=== PATIENT | female | born 1935 | race Caucasian/White ===

== ENCOUNTER 2018-07-06 00:46 | Emergency (ER) | payer MEDICARE, OTHER ==
[~2018-07-06] VITALS: Ht 167.6 cm; Wt 73.0 kg
[~2018-07-06 00:46] MED LIST: ARICEPT5 MG PO; ASPIR 8181 MG PO; BISCOLAX10 MG RC; FLUTICASONE PRO16 GM; HYDROCORTISONE30 GM TOP; LACTULOSE20 GM/30 M PO; LISINOPRIL10 MG PO; LORAZEPAM0.5 MG PO; MULTI-VITAMIN1 EACH PO; POLYETHYLENE GL17 GM PO; PRILOSEC10 MG PO; TYLENOL WITH C1 EACH PO; ZINC SULFATE220 M1 PO
--- NOTE | 2018-07-06 00:59 | NUR ---
[facility] CALLED FOR TRANSPORT
--- NOTE | 2018-07-06 01:50 | NUR ---
report called to [facility]. received call from [facility], informed that discharged back to skilled nursing.
== END 2018-07-06 01:49 | disposition home or self-care (01) ==
LOC: ER 00:46
DX: B86 Scabies (principal); T37.4X5A Adverse effect of anthelminthics, initial encounter; F03.90 Unspecified dementia, unspecified severity, without behavioral disturbance, psychotic disturbance, mood disturbance, and anxiety; I10 Essential (primary) hypertension; F32.9 Major depressive disorder, single episode, unspecified; K21.9 Gastro-esophageal reflux disease without esophagitis; E78.5 Hyperlipidemia, unspecified
CPT/HCPCS: 99282

== ENCOUNTER 2018-10-20 10:16 | Emergency (ER) | payer MEDICARE, OTHER ==
[~2018-10-20] VITALS: Ht 167.6 cm; Wt 73.0 kg
--- NOTE | 2018-10-20 11:30 | Diagnostic Imaging Report ---
History: Fall, bruising left forehead Comparison studies:None Technique: Axial images were obtained from the brain and cervical spine. Coronal and sagittal images reconstructed from the axial data. Intravenous contrast: None Dose modulation, iterative reconstruction, and/or weight based adjustment of the mA/kV was utilized to reduce the radiation dose to as low as reasonably achievable. Findings: Head CT: Scalp/skull: Large left frontal scalp hematoma. No fractures, blastic or lytic lesions. Brain sulci: Mildly prominent. Ventricles: Mild compensatory dilatation. No hydrocephalus. Parenchyma: Scattered small hypodensities in the supratentorial white matter are small vessel ischemic changes. No masses, hemorrhage, acute or chronic cortical vascular insults. Sellar/suprasellar region: No abnormalities. Craniocervical junction: Patent foramen magnum. No Chiari one malformation. Incidental findings: Atherosclerotic calcifications in the carotid siphons and vertebral arteries . Cervical spine CT: Fractures: None. Soft tissues: No gross abnormalities. Atlantoaxial articulation: Degenerative changes without acute abnormality. Alignment: Straightening of the cervical lordosis. No scoliosis. Cervicomedullary junction: No abnormalities. Patent foramen magnum. Vertebrae: No infection or neoplasm. Degenerative changes: Decreased intervertebral space with endplate sclerotic changes at C5-6. Fused intervertebral space at C6-7. Uncinate process hypertrophy and facet hypertrophy results in moderate left foraminal narrowing C3-4, severe right foraminal narrowing at C4-5, moderate right and severe left foraminal narrowing at C5-6. Posterior disc osteophyte complex results in moderate canal stenosis at C5-6. Incidental findings: Atherosclerotic calcifications of the carotid bulbs. 1 cm calcified nodule in the left thyroid lobe. Metallic fragments at the right paraspinal soft tissues and right retropharyngeal space. Impression: Head CT: 1. No acute intracranial abnormality. 2. Large left frontal scalp hematoma without underlying fracture. 3. Mild chronic vascular ischemic changes and mild diffuse volume loss. Cervical spine CT: 1. No acute abnormalities. 2. Cannot exclude ligament, spinal cord and or vascular abnormalities on the basis of this examination. Signed by: DR Jose L Waite M.D. on 10/20/2018 11:27 AM
--- NOTE | 2018-10-20 11:40 | NUR ---
PATIENT ASSISTED TO BEDSIDE COMMODE AND BACK TO BED AT THIS TIME; PATIENT TOLERATED WELL.
--- NOTE | 2018-10-20 11:47 | NUR ---
[facility] NOTIFIED OF NEED FOR TRANSPORT TO [facility] AT THIS TIME
== END 2018-10-20 13:04 | disposition home or self-care (01) ==
LOC: ER 10:16
DX: S00.83XA Contusion of other part of head, initial encounter (principal); W06.XXXA Fall from bed, initial encounter; Y93.84 Activity, sleeping; Y92.003 Bedroom of unspecified non-institutional (private) residence as the place of occurrence of the external cause; I10 Essential (primary) hypertension; E78.5 Hyperlipidemia, unspecified; K21.9 Gastro-esophageal reflux disease without esophagitis; F32.9 Major depressive disorder, single episode, unspecified; F03.90 Unspecified dementia, unspecified severity, without behavioral disturbance, psychotic disturbance, mood disturbance, and anxiety
CPT/HCPCS: 70450; 72125; 99284

== ENCOUNTER 2019-06-27 16:48 | Observation (INO) | payer MEDICARE, OTHER ==
[~2019-06-27] VITALS: Ht 162.6 cm; Wt 57.6 kg
--- NOTE | 2019-06-27 17:13 | NUR ---
PATIENTS DAUGHTER ISIDRO #[phone]
[2019-06-27 17:28] LABS: BASOPHILS % 0.4 % (0.0-1.0); EOSINOPHILS # (AUTO) 0.2 (0.0-0.4); EOSINOPHILS % 2.2 % (0.0-6.0); HEMATOCRIT 31.9 % (34.2-44.1); HEMOGLOBIN 9.8 g/dL (12.0-16.0); LYMPHOCYTES # (AUTO) 1.7 (1.0-3.2); LYMPHOCYTES % 24.9 % (18.0-39.1); MEAN CORPUSCULAR HEMOGLOBIN 29.4 pg (28-32); MEAN CORPUSCULAR HGB CONC 30.7 g/dL (31-35); MEAN CORPUSCULAR VOLUME 95.8 fL (81-99); MONOCYTES # (AUTO) 0.8 (0.2-0.8); MONOCYTES % 11.6 % (4.4-11.3); NEUTROPHILS # (AUTO) 4.2 (2.1-6.9); NEUTROPHILS % 60.8 % (38.7-80.0); PLATELET COUNT 230 x10e3/uL (140-360); RED BLOOD COUNT 3.33 x10e6/uL (3.6-5.1); RED CELL DISTRIBUTION WIDTH 13.6 % (11.7-14.4)
[2019-06-27 17:41] LABS: INR 0.9; PROTHROMBIN TIME 12.7 seconds (11.9-14.5)
[2019-06-27 17:51] LABS: ALBUMIN 3.3 g/dL (3.5-5.0); ALBUMIN/GLOBULIN RATIO 0.9 (0.8-2.0); CALCIUM 9.2 mg/dL (8.4-10.2); CREATININE, SERUM 0.99 mg/dL (0.57-1.11)
[2019-06-27 17:58] LABS: CREATINE KINASE MB 2.7 ng/mL (0-5.0)
--- NOTE | 2019-06-27 18:25 | Diagnostic Imaging Report ---
EXAMINATION: CHEST SINGLE (PORTABLE) INDICATION: ^ERMD ORDER ^[id number] ^1730 ^Y COMPARISON: None available FINDINGS: AP view TUBES and LINES: None. LUNGS: Lungs are well inflated. There is no evidence of pneumonia or pulmonary edema. PLEURA: No pleural effusion or pneumothorax. HEART AND MEDIASTINUM: The cardiomediastinal silhouette is unremarkable. BONES AND SOFT TISSUES: No acute osseous lesion. Soft tissues are unremarkable. UPPER ABDOMEN: No free air under the diaphragm. IMPRESSION: No acute thoracic abnormality. Signed by: Dr. Volodymyr Cooper MD on 06/27/2019 6:21 PM
--- NOTE | 2019-06-27 18:25 | Diagnostic Imaging Report ---
Examination: CT head without contrast Clinical Indication: Fall with head injury. Technique: Transaxial noncontrast images from the skull base through the vertex were obtained. Sagittal and coronal reformatted images were done. Dose modulation, iterative reconstruction, and/or weight based adjustment of the mA/kV was utilized to reduce the radiation dose to as low as reasonably achievable. Comparison: October 20, 2018 and December 03, 2018. Findings: Scalp: No abnormalities. Bones: Intact. No fractures. No blastic or lytic lesions. Brain sulci: Generalized volume loss for patient's age. Ventricles: No hydrocephalus. Extra-axial space: No abnormalities. Parenchyma: There are patchy areas of low-attenuation within subcortical and periventricular white matter, nonspecific, but could represent microvascular ischemic disease. No masses, hemorrhage, or acute or chronic cortical based vascular insults. Suprasellar region: No abnormalities. Craniocervical junction: The foramen magnum is patent. No Chiari one malformation. Incidental findings: Atherosclerotic calcification of the cavernous and supraclinoid internal carotid and V4 segments of the bilateral vertebral arteries. Impression: 1. No new acute intracranial abnormality when compared to prior head CT performed December 03, 2018. 2. Unchanged chronic microvascular ischemic change and volume loss. Signed by: Dr. Ramona Valentine M.D. on 06/27/2019 6:21 PM
[2019-06-27] MEDS ORDERED: ONDANSETRON HCL INJ 2MG/ML 2ML 2 MG/ML VIAL IV PRN (18:30)
[2019-06-27] MEDS ORDERED: SODIUM CHLORIDE 0.9% 1000ML 1,000 ML IV SCH (18:30)
--- NOTE | 2019-06-27 18:33 | Diagnostic Imaging Report ---
Examination: CT CERVICAL SPINE WO CONTRAST HISTORY:Neck injury and pain after fall. COMPARISON:October 20, 2018 and December 03, 2018 TECHNIQUE: Multidetector helical axial images were obtained without contrast from the foramen magnum to T1. Coronal and sagittal reformatted images were done. Bone and soft tissue windows were evaluated. Dose modulation, iterative reconstruction, and/or weight based adjustment of the mA/kV was utilized to reduce the radiation dose to as low as reasonably achievable. FINDINGS: Alignment:Normal alignment with straightening of normal lordosis. Vertebrae: Normal height and density. No acute fracture, infection or neoplasm. Fusion of the C6 and C7 vertebrae. Disc space heights: Severely narrowed at C5-C6. Caliber of spinal canal: Developmentally normal. Posterior fossa and craniocervical junction: Foramen magnum patent. No Chiari 1 malformation. Soft tissues: Atherosclerotic calcification of the bilateral carotid bifurcations. Radiopaque foreign body in the right posterolateral oropharynx, partially visualized tongue and posterior margin of the right sternocleidomastoid muscle. 1 cm calcified nodule of the left thyroid lobe. Degenerative changes: Moderate severe bilateral uncovertebral and facet arthropathy from C2-C3 through C5-C6 with moderate bilateral neural foraminal narrowing at C3-C4, moderate right foraminal narrowing at C4-C5 and severe bilateral foraminal narrowing at C5-C6. Visualized lung apices: No abnormalities. IMPRESSION: 1. No acute abnormalities. No change from prior cervical spine CT performed December 03, 2018. 2. Unchanged degenerative changes, as above. Signed by: Dr. Ramona Valentine M.D. on 06/27/2019 6:29 PM
[2019-06-27 18:54] LABS: BACTERIA,URINE FEW /HPF; BILIRUBIN,URINE NEGATIVE (NEGATIVE); CLARITY,URINE HAZY (CLEAR); COLOR,URINE YELLOW (YELLOW); EPITHELIAL CELLS,URINE FEW /LPF; KETONES,URINE NEGATIVE (NEGATIVE); LEUKOCYTE ESTERASE ,URINE SMALL (NEGATIVE); NITRITE,URINE NEGATIVE (NEGATIVE); PROTEIN,URINE DIPSTICK NEGATIVE (NEGATIVE); RBC,URINE 0-5 /HPF (0-5); URINE UROBILINOGEN 0.2 mg/dL (0.2 - 1)
[2019-06-27] MEDS ORDERED: CEFTRIAXONE SOD 1 GM/NS 50 ML 50 ML IV SCH (19:30)
[2019-06-27 20:03] VITALS: BP 163/70
--- NOTE | 2019-06-27 20:03 | NUR ---
PATIENT IS A NEW ADMIT THAT ARRIVED VIA STRETCHER. PATIENT IS AWAKE AND TALKING. PATIENT HAS BEEN TRANSFERRED INTO THE BED. BED IS IN THE LOWEST POSITION AND CALL LIGHT IS WITHIN REACH. WILL CONTINUE TO MONITOR PATIENT.
[2019-06-27 20:05] VITALS: BP 163/70
[2019-06-27] MEDS ORDERED: ATORVASTATIN CA10 MG PO (23:19)
[2019-06-27] MEDS ORDERED: NORVASC10 MG PO (23:19)
[2019-06-27] MEDS ORDERED: OMEPRAZOLE20 M1 PO (23:19)
[2019-06-27] MEDS ORDERED: SENNA LAXATIVE8.6 MG PO (23:19)
[2019-06-27] MEDS ORDERED: LISINOPRIL10 MG PO (23:19)
[2019-06-27] MEDS ORDERED: DONEPEZIL HCL5 MG PO (23:19)
[2019-06-27] MEDS ORDERED: VITAMIN C500 M1 PO (23:19)
[2019-06-27] MEDS ORDERED: HYDROXYZINE HCL25 MG PO (23:19)
[2019-06-27] MEDS ORDERED: ACIDOPHILUS1 EAC1 PO (23:19)
[2019-06-27] MEDS ORDERED: METOPROLOL SUCC25 MG PO (23:19)
[2019-06-27] MEDS ORDERED: ASPIRIN81 MG PO (23:19)
[2019-06-27] MEDS ORDERED: SERTRALINE HCL100 MG PO (23:19)
[2019-06-27] MEDS ORDERED: ACETAMINOPHEN325 M1 PO (23:19)
[2019-06-27] MEDS ORDERED: DIVALPROEX SOD250 MG PO (23:19)
[2019-06-28] VITALS: BP 130/59
[2019-06-28 04:00] VITALS: BP 121/58
[2019-06-28 05:53] LABS: BASOPHILS % 0.4 % (0.0-1.0); EOSINOPHILS # (AUTO) 0.2 (0.0-0.4); EOSINOPHILS % 3.1 % (0.0-6.0); HEMATOCRIT 30.3 % (34.2-44.1); HEMOGLOBIN 9.2 g/dL (12.0-16.0); MEAN CORPUSCULAR HEMOGLOBIN 29.3 pg (28-32); MEAN CORPUSCULAR HGB CONC 30.4 g/dL (31-35); MEAN CORPUSCULAR VOLUME 96.5 fL (81-99); MONOCYTES # (AUTO) 0.9 (0.2-0.8); MONOCYTES % 12.4 % (4.4-11.3); NEUTROPHILS # (AUTO) 3.8 (2.1-6.9); PLATELET COUNT 215 x10e3/uL (140-360); RED BLOOD COUNT 3.14 x10e6/uL (3.6-5.1); RED CELL DISTRIBUTION WIDTH 13.2 % (11.7-14.4)
[2019-06-28 06:11] LABS: ALANINE AMINOTRANSFERASE 7 IU/L (0-55); ALBUMIN 2.9 g/dL (3.5-5.0); ALBUMIN/GLOBULIN RATIO 0.8 (0.8-2.0); ALKALINE PHOSPHATASE 66 IU/L (40-150); ANION GAP 12.8 mmol/L (8-16); BLOOD UREA NITROGEN 19 mg/dL (7-26); BUN/CREATININE RATIO 24 (6-25); CALCIUM 8.9 mg/dL (8.4-10.2); CARBON DIOXIDE 26 mmol/L (22-29); CHLORIDE 106 mmol/L (98-107); CHOLESTEROL 134 MD/DL (0-199); CREATININE, SERUM 0.79 mg/dL (0.57-1.11); EST GLOMERULAR FILTRATION RATE > 60 ML/MIN (60-); GLUCOSE 77 mg/dL (74-118); HDL CHOLESTEROL 45 MG/DL (40-60); LDL CHOLESTEROL 73 MG/DL (60-130); POTASSIUM 3.8 mmol/L (3.5-5.1); SODIUM 141 mmol/L (136-145); TRIGLYCERIDES 82 MG/DL (0-149)
[2019-06-28 06:30] LABS: CREATINE KINASE MB 2.4 ng/mL (0-5.0)
--- NOTE | 2019-06-28 06:44 | NUR ---
PATIENT IS RESTING COMFORTABLY IN THE BED. NO DISTRESS NOTED.
[2019-06-28 08:22] VITALS: BP 140/68
[2019-06-28] MEDS ORDERED: ACETAMINOPHEN/CODEINE 300MG - 30MG TAB PO PRN (09:30)
[2019-06-28 09:35] VITALS: BP 140/68
[2019-06-28] MEDS ORDERED: PNEUMOCOCCAL VACCINE POLYVALENT 23 MCG/0.5 ML VIAL IM SCH (09:36)
[2019-06-28] MEDS ORDERED: INFLUENZA VIRUS VAC SPLIT INJ 0.5 ML SYR IM SCH (09:36)
[2019-06-28] MEDS ORDERED: LACTULOSE SYRUP 20 GM/30 ML UDC PO PRN (11:15)
[2019-06-28] MEDS ORDERED: ACETAMINOPHEN 325 MG TAB PO PRN (11:15)
[2019-06-28 12:28] VITALS: BP 125/71
[2019-06-28 12:48] LABS: CREATINE KINASE MB 2.6 ng/mL (0-5.0)
--- NOTE | 2019-06-28 15:10 | Consultation ---
DATE OF CONSULTATION: Pulmonary Critical Care Consultation CHIEF COMPLAINT: Syncope. HISTORY OF PRESENT ILLNESS: The patient is an 84-year-old woman. She has a history of dementia and hypertension. She is on some antihypertensive medications, but does not have any known cardiac history. Apparently, she was transported from the nursing facility because of a fall. She was evaluated in the emergency department and had a CT scan of her head and neck that showed no acute changes. PAST MEDICAL HISTORY: 1. Hypertension. 2. Dimension. 3. Osteoarthritis. 4. History of a deep vein thrombosis on the left side. PAST SURGICAL HISTORY: Not obtainable. FAMILY HISTORY: Not obtainable. SOCIAL HISTORY: The patient came from a nursing facility. ALLERGIES: THE PATIENT IS ALLERGIC TO PENICILLIN WELL CODEINE AND ADHESIVE TAPE. REVIEW OF SYSTEMS: There was no reported history of fever. There was no reported history of chest pain or difficulty breathing. There was no history of nausea or vomiting. She does have dementia and this is chronic. PHYSICAL EXAMINATION: VITAL SIGNS: Blood pressure is 125/71, saturation is 97% and the pulse is 71. HEENT: No facial swelling or erythema. LYMPHATIC: No submandibular, cervical, or supraclavicular adenopathy. CARDIAC: Regular rate and rhythm with normal S1 and S2. LUNGS: Auscultation of the lungs reveals rhonchorous breath sounds bilaterally. There is no wheezing. ABDOMEN: Soft, nontender. There is no rebound or guarding. EXTREMITIES: No leg edema. There is some cellulitis or erythema in the right lower extremity. LABORATORY DATA: White blood cell count is 6.8 and hemoglobin is 9.2. The platelet count is 215,000. BUN to creatinine ratio is normal. The other electrolytes are within normal limits. Albumin is 2.9. RADIOGRAPHIC DATA: Chest x-ray shows no acute changes. CT scan of the cervical spine shows no acute changes. CT scan of the brain shows no acute changes. IMPRESSION: 1. Syncope of unclear cause. 2. Chronic dementia. 3. Hypertension. 4. Cellulitis in the right lower extremity. PLAN: 1. Echocardiogram and cardiac workup. 2. Continue antibiotics. 3. Continue to monitor blood counts. 4. Continue current antihypertensive regimen. 5. DVT prophylaxis. 6. Physical therapy. Shilo Marcano MD [facility] /[id number]
[2019-06-28] MEDS ORDERED: DIVALPROEX SODIUM 250 MG TAB...DR PO SCH (17:00)
[2019-06-28] MEDS ORDERED: LACTOBACILLUS ACIDOPHILUS CAPSULE PO SCH (17:00)
--- NOTE | 2019-06-28 17:31 | Discharge Summary ---
ADMISSION DIAGNOSES: Syncope, dementia, hypertension, hyperlipidemia, depression, fall. DISCHARGE DIAGNOSES: Syncope, dementia, hypertension, hyperlipidemia, depression, fall, rule out cerebrovascular accident. HISTORY: Dementia, osteoarthritis, chronic pain, left lower extremity deep venous thrombosis, gastroesophageal reflux disease, hypertension, hyperlipidemia, depression. HOSPITAL COURSE: An 84-year-old female sent from [facility] due to a fall. History and HPI were from the chart as the patient has AMS due to dementia. On admission, CT of the brain showed no acute abnormality. CT of the C-spine showed no acute abnormality. Chest x-ray was negative. Troponins were negative. Lipid panel was within normal limits. White count was within normal limits. Urine culture showed no growth. Bilateral carotid Doppler showed no significant stenosis. An EKG was normal sinus rhythm. According to family, the patient appears at baseline. She will discharge back to [facility] and echo showed an EF of 65% to 70%. Vital signs are stable. The patient is afebrile. Dictated by Gris Crump NP MD [facility] /[id number]
[2019-06-28] MEDS ORDERED: HEPARIN SOD (PORCINE) 5,000 UNIT/ML VIAL SC SCH (21:00)
[2019-06-28] MEDS ORDERED: ATORVASTATIN 10 MG TAB PO SCH (21:00)
[2019-06-28] MEDS ORDERED: AMLODIPINE BESYLATE 10 MG TAB PO SCH (21:00)
[2019-06-28] MEDS ORDERED: METOPROLOL SUCCINATE 25 MG TAB XL PO SCH (21:00)
[2019-06-28] MEDS ORDERED: DONEPEZIL HCL 5 MG TAB PO SCH (21:00)
[2019-06-29] MEDS ORDERED: PANTOPRAZOLE SOD 40 MG TABEC PO SCH (07:30)
[2019-06-29] MEDS ORDERED: HYDROCORTISONE .5% 30 GM TUBE TOP SCH (09:00)
[2019-06-29] MEDS ORDERED: LISINOPRIL 10 MG TAB PO SCH (09:00)
[2019-06-29] MEDS ORDERED: SENNOSIDES 8.6 MG TAB PO SCH (09:00)
[2019-06-29] MEDS ORDERED: FLUTICASONE PROPIONATE NASAL SPRAY NS SCH (09:00)
[2019-06-29] MEDS ORDERED: POLYETHYLENE GLYCOL 3350 17 GM PACK PO SCH (09:00)
[2019-06-29] MEDS ORDERED: ZINC SULFATE 220 MG CAP PO SCH (09:00)
[2019-06-29] MEDS ORDERED: SERTRALINE HCL 100 MG TAB PO SCH (09:00)
[2019-06-29] MEDS ORDERED: DONEPEZIL HCL 5 MG TAB PO SCH (09:00)
[2019-06-29] MEDS ORDERED: ASPIRIN 81 MG CHEW TAB PO SCH (09:00)
[2019-06-29] MEDS ORDERED: NON-FORMULARY MEDICATION (Omeprazole (Prilosec) 1 CAP) PO SCH (09:00)
[2019-06-29] MEDS ORDERED: ASCORBIC ACID 500 MG TAB PO SCH (09:00)
[2019-06-29] MEDS ORDERED: MULTIVITAMINS/MINERALS TAB PO SCH (09:00)
== END 2019-06-28 15:23 ==
LOC: ER 16:48 → ERHOLD 18:30 → MED/SURG2 20:08
PROVIDERS: ADMIT Internal Medicine; ATTEND Internal Medicine
DX: R55 Syncope and collapse (principal); F03.90 Unspecified dementia, unspecified severity, without behavioral disturbance, psychotic disturbance, mood disturbance, and anxiety; Z86.718 Personal history of other venous thrombosis and embolism; Z79.01 Long term (current) use of anticoagulants; K21.9 Gastro-esophageal reflux disease without esophagitis; E78.5 Hyperlipidemia, unspecified; I10 Essential (primary) hypertension; F32.9 Major depressive disorder, single episode, unspecified; M19.90 Unspecified osteoarthritis, unspecified site; G89.29 Other chronic pain; L03.115 Cellulitis of right lower limb; S01.81XA Laceration without foreign body of other part of head, initial encounter; W19.XXXA Unspecified fall, initial encounter; Y93.9 Activity, unspecified
CPT/HCPCS: 12011; 36415 ×2; 70450; 71045; 72125; 80053 ×2; 80061; 81001; 82550 ×2; 82553 ×2; 84484 ×2; 85025 ×2; 85610; 85730; 87086; 93005; 93306; 93880; 99284; G0378 ×2; J0696; J2405; J7030

== ENCOUNTER 2020-11-11 08:55 | Inpatient (IN) | payer MEDICARE, OTHER ==
[2020-11-11] VITALS (18 sets, daily range): BP systolic 74–131; BP diastolic 35–92
[~2020-11-11] VITALS: Ht 162.6 cm; Wt 56.8 kg
[~2020-11-11 08:55] MED LIST changes: +ACETAMINOPHEN325 M1 PO; +ACIDOPHILUS1 EAC1 PO; +ASPIRIN81 MG PO; +ATORVASTATIN CA10 MG PO; +DIVALPROEX SOD250 MG PO; +DONEPEZIL HCL5 MG PO; +HYDROXYZINE HCL25 MG PO; +METOPROLOL SUCC25 MG PO; +NORVASC10 MG PO; +OMEPRAZOLE20 M1 PO; +SENNA LAXATIVE8.6 MG PO; +SERTRALINE HCL100 MG PO; +VITAMIN C500 M1 PO
[2020-11-11] MEDS ORDERED: SODIUM CHLORIDE 0.9% 1000ML 1,000 ML IV STA (09:15)
[2020-11-11] MEDS ORDERED: ONDANSETRON HCL INJ 2MG/ML 2ML 2 MG/ML VIAL IV STA (09:15)
[2020-11-11 09:41] LABS: BASOPHILS % 0.1 % (0.0-1.0); HEMATOCRIT 37.6 % (34.2-44.1); HEMOGLOBIN 11.3 g/dL (12.0-16.0); LYMPHOCYTES # (AUTO) 0.9 (1.0-3.2); LYMPHOCYTES % 4.2 % (18.0-39.1); MEAN CORPUSCULAR HEMOGLOBIN 29.3 pg (28-32); MEAN CORPUSCULAR HGB CONC 30.1 g/dL (31-35); MEAN CORPUSCULAR VOLUME 97.4 fL (81-99); MONOCYTES # (AUTO) 2.2 (0.2-0.8); MONOCYTES % 10.1 % (4.4-11.3); NEUTROPHILS # (AUTO) 18.2 (2.1-6.9); NEUTROPHILS % 84.5 % (38.7-80.0); PLATELET COUNT 480 x10e3/uL (140-360); RED BLOOD COUNT 3.86 x10e6/uL (3.6-5.1); RED CELL DISTRIBUTION WIDTH 13.1 % (11.7-14.4)
[2020-11-11 10:07] LABS: INR 1.26; PROTHROMBIN TIME 16.1 seconds (11.9-14.5)
[2020-11-11 10:08] LABS: PARTIAL THROMBOPLASTIN TIME 34.3 seconds (23.8-35.5)
[2020-11-11 10:12] LABS: ABG HCO3 16 mmol/L (22-26); ABG PCO2 37 mmHg (35-45); ABG PH 7.24 (7.35-7.45); ABG PO2 64 mmHg (80-105)
[2020-11-11 10:13] LABS: ABG TCO2 17
[2020-11-11 10:18] LABS: CLARITY,URINE CLOUDY (CLEAR); COLOR,URINE YELLOW (YELLOW)
[2020-11-11 10:19] LABS: KETONES,URINE NEGATIVE (NEGATIVE); LEUKOCYTE ESTERASE ,URINE LARGE (NEGATIVE); NITRITE,URINE NEGATIVE (NEGATIVE); PROTEIN,URINE DIPSTICK 1+ (NEGATIVE); URINE UROBILINOGEN 0.2 mg/dL (0.2 - 1)
[2020-11-11 10:22] LABS: ALBUMIN 3.2 g/dL (3.5-5.0); ALBUMIN/GLOBULIN RATIO 0.7 (0.8-2.0); ANION GAP 29.1 mmol/L (8-16); CALCIUM 9.1 mg/dL (8.4-10.2); CREATINE KINASE MB 26.2 ng/mL (0-5.0); CREATININE, SERUM 6.48 mg/dL (0.57-1.11); MAGNESIUM 2.7 MG/DL (1.3-2.1)
[2020-11-11 10:26] LABS: AMORPHOUS SEDIMENT,URINE MANY (FEW); BACTERIA,URINE MANY /HPF; EPITHELIAL CELLS,URINE FEW /LPF; RBC,URINE 0-5 /HPF (0-5); WBC,URINE (MAN) >50 /HPF (0-5)
[2020-11-11 10:30] LABS: POTASSIUM 8.1 mmol/L (3.5-5.1)
[2020-11-11] MEDS ORDERED: CALCIUM GLUCONATE 10% INJ 4.65 MEQ in SODIUM CHLORIDE 0.9% 50ML 50 ML IV ONE ×3 (10:30→11:15)
[2020-11-11] MEDS ORDERED: DEXTROSE 50% SYRINGE 50 ML IV ONE (10:30)
[2020-11-11] MEDS ORDERED: INSULIN REGULAR, HUMAN 100 UNIT/1 ML IV ONE (10:30)
[2020-11-11] MEDS ORDERED: PIPERACILLIN/TAZOBACTAM 3.375 GM in SODIUM CHLORIDE 0.9% 50ML 50 ML IV ONE (10:30)
[2020-11-11] MEDS ORDERED: SODIUM BICARBONATE 8.4% INJ 50 ML SYR IV STA (10:30)
[2020-11-11] MEDS ORDERED: SODIUM BICARBONATE 8.4% 50 ML VIAL IV STA (11:10)
[2020-11-11] MEDS ORDERED: SODIUM BICARBONATE 8.4% INJ 50 ML SYR IV ONE (11:15)
[2020-11-11] MEDS ORDERED: ONDANSETRON HCL INJ 2MG/ML 2ML 2 MG/ML VIAL IV PRN (11:15)
[2020-11-11] MEDS ORDERED: SODIUM CHLORIDE 0.9% 1000ML 1,000 ML IV ONE ×2 (12:15→14:15)
[2020-11-11] MEDS ORDERED: SODIUM CHLORIDE 0.9% 1000ML 1,000 ML ONE (12:30)
[2020-11-11] MEDS: DEXTROSE 50% IV SCH ×4 (13:15)
[2020-11-11] MEDS: INSULIN REGULAR IV SCH ×4 (13:15)
[2020-11-11] MEDS: SODIUM BICARBONATE 8.4% IV SCH ×4 (13:15)
[2020-11-11] MEDS: [UNRECOGNIZED DRUG - OTHER] IV SCH ×4 (13:15)
[2020-11-11] MEDS ORDERED: MEROPENEM 1 GM in SODIUM CHLORIDE 0.9% 100 ML IV ONE (13:30)
[2020-11-11] MEDS ORDERED: SOD POLYSTYRENE SULFONATE SUSP 15 GM/60 ML BTL PR ONE ×2 (13:45→17:45)
[2020-11-11 15:14] LABS: ANION GAP 23.3 mmol/L (8-16); CALCIUM 8.2 mg/dL (8.4-10.2); CREATININE, SERUM 5.7 mg/dL (0.57-1.11)
[2020-11-11 15:21] LABS: POTASSIUM 7.3 mmol/L (3.5-5.1)
[2020-11-11] MEDS ORDERED: ACETAMINOPHEN 325 MG TAB PO PRN (17:15)
[2020-11-11 18:43] LABS: CREATINE KINASE MB 39.9 ng/mL (0-5.0)
[2020-11-11] MEDS: MORPHINE SULFATE INJ 2 MG/ML SYR IV PRN (20:19)
[2020-11-11] MEDS: LINEZOLID 600 MG/D5W 300ML 300 ML IV SCH (20:51)
[2020-11-11] MEDS ORDERED: VASOPRESSIN 60 UNIT in DEXTROSE 5% 50ML 57 ML IV STA (21:00)
[2020-11-11] MEDS ORDERED: DEXTROSE 5% 100ML 100 ML IV ONE (21:19)
[2020-11-11] MEDS ORDERED: VASOPRESSIN INJ 20 UNIT/ML VIAL ONE (21:19)
[2020-11-11] MEDS ORDERED: SODIUM CHLORIDE 0.9% 50ML 50 ML ONE (23:44)
[2020-11-11] MEDS: PIPERACILLIN/TAZOBACTAM 2.25 GM in SODIUM CHLORIDE 0.9% 50ML 50 ML IV SCH (23:59)
[2020-11-12] VITALS (24 sets, daily range): BP systolic 66–143; BP diastolic 38–99
[2020-11-12] MEDS: VASOPRESSIN 60 UNIT in DEXTROSE 5% 50ML 57 ML IV PRN ×2 (01:05→22:32)
[2020-11-12 05:42] LABS: BASOPHILS % 0.1 % (0.0-1.0); HEMATOCRIT 26.7 % (34.2-44.1); HEMOGLOBIN 8.3 g/dL (12.0-16.0); LYMPHOCYTES # (AUTO) 1.3 (1.0-3.2); LYMPHOCYTES % 8.4 % (18.0-39.1); MEAN CORPUSCULAR HEMOGLOBIN 29.5 pg (28-32); MEAN CORPUSCULAR HGB CONC 31.1 g/dL (31-35); MONOCYTES # (AUTO) 1.5 (0.2-0.8); MONOCYTES % 9.8 % (4.4-11.3); NEUTROPHILS # (AUTO) 12.7 (2.1-6.9); NEUTROPHILS % 81.3 % (38.7-80.0); PLATELET COUNT 300 x10e3/uL (140-360); RED BLOOD COUNT 2.81 x10e6/uL (3.6-5.1); RED CELL DISTRIBUTION WIDTH 12.9 % (11.7-14.4)
[2020-11-12] MEDS: PIPERACILLIN/TAZOBACTAM 2.25 GM in SODIUM CHLORIDE 0.9% 50ML 50 ML IV SCH ×4 (05:55→23:24)
[2020-11-12] MEDS: INSULIN REGULAR IV SCH ×4 (05:59)
[2020-11-12] MEDS: [UNRECOGNIZED DRUG - OTHER] IV SCH ×4 (05:59)
[2020-11-12] MEDS: SODIUM BICARBONATE 8.4% IV SCH ×4 (05:59)
[2020-11-12] MEDS: DEXTROSE 50% IV SCH ×4 (05:59)
[2020-11-12 06:03] LABS: ALBUMIN 2.3 g/dL (3.5-5.0); ALBUMIN/GLOBULIN RATIO 0.7 (0.8-2.0); ANION GAP 17.9 mmol/L (8-16); CREATININE, SERUM 4.21 mg/dL (0.57-1.11); POTASSIUM 4.9 mmol/L (3.5-5.1)
[2020-11-12 06:10] LABS: CHOL/HDL RATIO 3.5 (3.0-3.6); MAGNESIUM 2.1 MG/DL (1.3-2.1); PHOSPHORUS 6.8 MG/DL (2.3-4.7)
[2020-11-12 06:22] LABS: THYROID STIMULATING HORMONE 0.515 uIU/mL (0.350-4.940)
[2020-11-12] MEDS ORDERED: DEXTROSE 5% 1,000 ML IV ONE (06:30)
[2020-11-12] MEDS: MORPHINE SULFATE INJ 2 MG/ML SYR IV PRN ×3 (07:50→22:11)
[2020-11-12] MEDS: DONEPEZIL HCL 5 MG TAB PO SCH (08:44)
[2020-11-12] MEDS: ASCORBIC ACID 500 MG TAB PO SCH ×2 (08:44→17:00)
[2020-11-12] MEDS: ZINC SULFATE 220 MG CAP PO SCH (08:44)
[2020-11-12] MEDS: SERTRALINE HCL 100 MG TAB PO SCH (08:45)
[2020-11-12] MEDS ORDERED: ZINC SULFATE 50 MG CAP PO SCH (09:00)
[2020-11-12] MEDS ORDERED: ENOXAPARIN INJ 80 MG/0.8 ML SYR SC SCH (09:00)
[2020-11-12] MEDS ORDERED: ENOXAPARIN 30 MG/0.3 ML SYR SC SCH (09:00)
[2020-11-12] MEDS ORDERED: DEXAMETHASONE SOD PHOS 10 MG/1 ML VIAL IV ONE (09:00)
[2020-11-12] MEDS: LINEZOLID 600 MG/D5W 300ML 300 ML IV SCH ×2 (09:20→21:25)
[2020-11-12] MEDS ORDERED: DEXTROSE 50% IV SCH ×4 (13:39)
[2020-11-12] MEDS ORDERED: [UNRECOGNIZED DRUG - OTHER] IV SCH ×4 (13:39)
[2020-11-12] MEDS ORDERED: INSULIN REGULAR IV SCH ×4 (13:39)
[2020-11-12] MEDS ORDERED: SODIUM BICARBONATE 8.4% IV SCH ×4 (13:39)
[2020-11-12] MEDS: DEXTROSE 5% 1,000 ML IV SCH (19:14)
[2020-11-12] MEDS: HEPARIN SOD (PORCINE) 5,000 UNIT/ML VIAL SC SCH (21:30)
[2020-11-13] VITALS (18 sets, daily range): BP systolic 104–155; BP diastolic 42–79
[2020-11-13] MEDS: MORPHINE SULFATE INJ 2 MG/ML SYR IV PRN ×2 (04:46→16:38)
[2020-11-13] MEDS: PIPERACILLIN/TAZOBACTAM 2.25 GM in SODIUM CHLORIDE 0.9% 50ML 50 ML IV SCH ×3 (06:03→17:16)
[2020-11-13] MEDS: DEXTROSE 5% 1,000 ML IV SCH ×2 (06:45→20:11)
[2020-11-13 07:13] LABS: BASOPHILS % 0.1 % (0.0-1.0); HEMATOCRIT 24.7 % (34.2-44.1); HEMOGLOBIN 7.7 g/dL (12.0-16.0); LYMPHOCYTES # (AUTO) 1.7 (1.0-3.2); LYMPHOCYTES % 12.5 % (18.0-39.1); MEAN CORPUSCULAR HEMOGLOBIN 29.6 pg (28-32); MEAN CORPUSCULAR HGB CONC 31.2 g/dL (31-35); MONOCYTES # (AUTO) 1.1 (0.2-0.8); MONOCYTES % 8.2 % (4.4-11.3); NEUTROPHILS # (AUTO) 10.7 (2.1-6.9); NEUTROPHILS % 78.3 % (38.7-80.0); PLATELET COUNT 281 x10e3/uL (140-360); RED CELL DISTRIBUTION WIDTH 13.1 % (11.7-14.4)
[2020-11-13 07:42] LABS: MAGNESIUM 1.7 MG/DL (1.3-2.1)
[2020-11-13 07:44] LABS: ALBUMIN 2.3 g/dL (3.5-5.0); ALBUMIN/GLOBULIN RATIO 0.7 (0.8-2.0); ANION GAP 14.4 mmol/L (8-16); CREATININE, SERUM 2.56 mg/dL (0.57-1.11); POTASSIUM 4.4 mmol/L (3.5-5.1)
[2020-11-13] MEDS: ZINC SULFATE 220 MG CAP PO SCH (09:00)
[2020-11-13] MEDS: ASCORBIC ACID 500 MG TAB PO SCH ×2 (09:00→16:56)
[2020-11-13] MEDS: DONEPEZIL HCL 5 MG TAB PO SCH (09:00)
[2020-11-13] MEDS: LINEZOLID 600 MG/D5W 300ML 300 ML IV SCH ×2 (09:00→20:43)
[2020-11-13] MEDS: SERTRALINE HCL 100 MG TAB PO SCH (09:00)
[2020-11-13] MEDS: HEPARIN SOD (PORCINE) 5,000 UNIT/ML VIAL SC SCH ×2 (09:03→21:35)
[2020-11-14] VITALS (9 sets, daily range): BP systolic 106–152; BP diastolic 56–96
[2020-11-14] MEDS: PIPERACILLIN/TAZOBACTAM 2.25 GM in SODIUM CHLORIDE 0.9% 50ML 50 ML IV SCH ×5 (00:20→23:34)
[2020-11-14 05:20] LABS: BASOPHILS % 0.2 % (0.0-1.0); EOSINOPHILS # (AUTO) 0.1 (0.0-0.4); EOSINOPHILS % 0.5 % (0.0-6.0); HEMATOCRIT 31.2 % (34.2-44.1); HEMOGLOBIN 9.6 g/dL (12.0-16.0); LYMPHOCYTES # (AUTO) 2.3 (1.0-3.2); LYMPHOCYTES % 17.3 % (18.0-39.1); MEAN CORPUSCULAR HEMOGLOBIN 29.3 pg (28-32); MEAN CORPUSCULAR HGB CONC 30.8 g/dL (31-35); MEAN CORPUSCULAR VOLUME 95.1 fL (81-99); MONOCYTES # (AUTO) 1.2 (0.2-0.8); MONOCYTES % 8.9 % (4.4-11.3); NEUTROPHILS # (AUTO) 9.6 (2.1-6.9); NEUTROPHILS % 72.6 % (38.7-80.0); PLATELET COUNT 372 x10e3/uL (140-360); RED BLOOD COUNT 3.28 x10e6/uL (3.6-5.1); RED CELL DISTRIBUTION WIDTH 12.7 % (11.7-14.4)
[2020-11-14 05:48] LABS: ALBUMIN 2.4 g/dL (3.5-5.0); ALBUMIN/GLOBULIN RATIO 0.6 (0.8-2.0); ANION GAP 15.3 mmol/L (8-16); CALCIUM 8.3 mg/dL (8.4-10.2); CREATININE, SERUM 1.6 mg/dL (0.57-1.11); POTASSIUM 4.3 mmol/L (3.5-5.1)
[2020-11-14] MEDS: LINEZOLID 600 MG/D5W 300ML 300 ML IV SCH ×2 (08:10→20:31)
[2020-11-14] MEDS: SERTRALINE HCL 100 MG TAB PO SCH (08:49)
[2020-11-14] MEDS: ZINC SULFATE 220 MG CAP PO SCH (08:49)
[2020-11-14] MEDS: ASCORBIC ACID 500 MG TAB PO SCH ×2 (08:49→16:09)
[2020-11-14] MEDS: DONEPEZIL HCL 5 MG TAB PO SCH (08:49)
[2020-11-14] MEDS: DEXTROSE 5% 1,000 ML IV SCH ×2 (09:13→20:32)
[2020-11-14] MEDS: HEPARIN SOD (PORCINE) 5,000 UNIT/ML VIAL SC SCH ×2 (09:13→20:32)
[2020-11-14] MEDS ORDERED: LORAZEPAM INJ 2 MG/ML VIAL IV PRN (09:15)
[2020-11-14] MEDS: BALSAM PERU/CASTOR OIL 60 GM OINT...G. TP SCH (14:55)
[2020-11-14] MEDS ORDERED: PIPERACILLIN/TAZOBACTAM SOD 2.25 GM VIAL ONE (17:01)
[2020-11-14] MEDS: MORPHINE SULFATE INJ 2 MG/ML SYR IV PRN (21:00)
[2020-11-15] VITALS (7 sets, daily range): BP systolic 94–130; BP diastolic 63–79
[2020-11-15 04:48] LABS: BASOPHILS % 0.2 % (0.0-1.0); EOSINOPHILS % 0.3 % (0.0-6.0); HEMATOCRIT 28.2 % (34.2-44.1); LYMPHOCYTES # (AUTO) 2.5 (1.0-3.2); LYMPHOCYTES % 17.5 % (18.0-39.1); MEAN CORPUSCULAR HEMOGLOBIN 29.8 pg (28-32); MEAN CORPUSCULAR HGB CONC 31.9 g/dL (31-35); MEAN CORPUSCULAR VOLUME 93.4 fL (81-99); MONOCYTES # (AUTO) 1.9 (0.2-0.8); MONOCYTES % 13.1 % (4.4-11.3); NEUTROPHILS # (AUTO) 9.8 (2.1-6.9); PLATELET COUNT 348 x10e3/uL (140-360); RED BLOOD COUNT 3.02 x10e6/uL (3.6-5.1); RED CELL DISTRIBUTION WIDTH 12.6 % (11.7-14.4)
[2020-11-15 05:12] LABS: ALBUMIN 2.2 g/dL (3.5-5.0); ALBUMIN/GLOBULIN RATIO 0.6 (0.8-2.0); ANION GAP 14.7 mmol/L (8-16); CALCIUM 8.3 mg/dL (8.4-10.2); CREATININE, SERUM 1.3 mg/dL (0.57-1.11); POTASSIUM 3.7 mmol/L (3.5-5.1)
[2020-11-15] MEDS: PIPERACILLIN/TAZOBACTAM 2.25 GM in SODIUM CHLORIDE 0.9% 50ML 50 ML IV SCH ×3 (05:30→17:06)
[2020-11-15] MEDS: LINEZOLID 600 MG/D5W 300ML 300 ML IV SCH ×2 (08:51→19:50)
[2020-11-15] MEDS: HEPARIN SOD (PORCINE) 5,000 UNIT/ML VIAL SC SCH ×2 (08:52→20:47)
[2020-11-15] MEDS: DONEPEZIL HCL 5 MG TAB PO SCH (08:52)
[2020-11-15] MEDS: ZINC SULFATE 220 MG CAP PO SCH (08:52)
[2020-11-15] MEDS: ASCORBIC ACID 500 MG TAB PO SCH ×2 (08:52→17:06)
[2020-11-15] MEDS: BALSAM PERU/CASTOR OIL 60 GM OINT...G. TP SCH (08:52)
[2020-11-15] MEDS: SERTRALINE HCL 100 MG TAB PO SCH (08:53)
[2020-11-15] MEDS: DEXTROSE 5% 1,000 ML IV SCH (12:27)
[2020-11-15] MEDS: MORPHINE SULFATE INJ 2 MG/ML SYR IV PRN (14:22)
[2020-11-16] MEDS: PIPERACILLIN/TAZOBACTAM 2.25 GM in SODIUM CHLORIDE 0.9% 50ML 50 ML IV SCH ×4 (00:10→16:18)
[2020-11-16 00:48] VITALS: BP 133/72
[2020-11-16 04:10] VITALS: BP 129/88
[2020-11-16] MEDS: DEXTROSE 5% 1,000 ML IV SCH ×2 (04:50→14:04)
[2020-11-16] MEDS ORDERED: ARICEPT5 MG PO (07:50)
[2020-11-16] MEDS ORDERED: VENELEX OINTMEN60 GM TP (07:50)
[2020-11-16] MEDS ORDERED: ASCORBIC ACID500 MG PO (07:50)
[2020-11-16 08:25] VITALS: BP 125/76
[2020-11-16] MEDS: LINEZOLID 600 MG/D5W 300ML 300 ML IV SCH (09:13)
[2020-11-16] MEDS: ASCORBIC ACID 500 MG TAB PO SCH ×2 (09:13→16:18)
[2020-11-16] MEDS: SERTRALINE HCL 100 MG TAB PO SCH (09:13)
[2020-11-16] MEDS: ZINC SULFATE 220 MG CAP PO SCH (09:13)
[2020-11-16] MEDS: DONEPEZIL HCL 5 MG TAB PO SCH (09:13)
[2020-11-16] MEDS: HEPARIN SOD (PORCINE) 5,000 UNIT/ML VIAL SC SCH (09:16)
[2020-11-16] MEDS: BALSAM PERU/CASTOR OIL 60 GM OINT...G. TP SCH (09:19)
[2020-11-16 09:22] VITALS: BP 125/76
[2020-11-16 10:30] LABS: BASOPHILS % 0.3 % (0.0-1.0); EOSINOPHILS # (AUTO) 0.2 (0.0-0.4); EOSINOPHILS % 1.6 % (0.0-6.0); HEMATOCRIT 26.9 % (34.2-44.1); HEMOGLOBIN 8.3 g/dL (12.0-16.0); LYMPHOCYTES # (AUTO) 1.9 (1.0-3.2); LYMPHOCYTES % 16.7 % (18.0-39.1); MEAN CORPUSCULAR HEMOGLOBIN 29.4 pg (28-32); MEAN CORPUSCULAR HGB CONC 30.9 g/dL (31-35); MEAN CORPUSCULAR VOLUME 95.4 fL (81-99); MONOCYTES # (AUTO) 1.3 (0.2-0.8); MONOCYTES % 11.5 % (4.4-11.3); NEUTROPHILS # (AUTO) 7.7 (2.1-6.9); NEUTROPHILS % 69.2 % (38.7-80.0); PLATELET COUNT 299 x10e3/uL (140-360); RED BLOOD COUNT 2.82 x10e6/uL (3.6-5.1); RED CELL DISTRIBUTION WIDTH 12.5 % (11.7-14.4)
[2020-11-16 10:53] LABS: ANION GAP 12.6 mmol/L (8-16); CALCIUM 8.4 mg/dL (8.4-10.2); CREATININE, SERUM 1.05 mg/dL (0.57-1.11); POTASSIUM 3.6 mmol/L (3.5-5.1)
[2020-11-16 12:28] VITALS: BP 122/70
[2020-11-16] MEDS ORDERED: ONDANSETRON HCL 4 MG ORAL DISINTEGRATING TAB PO PRN (13:00)
[2020-11-16 16:17] VITALS: BP 103/50
== END 2020-11-16 18:20 | disposition hospice, inpatient (51) | DRG 177 ==
LOC: ER 08:59 → ERHOLD 11:22 → COVIDICU 13:08 → IMCU 11-13 09:42
PROVIDERS: ADMIT Internal Medicine; ATTEND Internal Medicine
PROC: 8E0ZXY6 Isolation (ICD-10-PCS; 2020-11-11)
PROC: 3E033XZ Introduction of Vasopressor into Peripheral Vein, Percutaneous Approach (ICD-10-PCS; 2020-11-11)
PROC: 3E0333Z Introduction of Anti-inflammatory into Peripheral Vein, Percutaneous Approach (ICD-10-PCS; principal; 2020-11-12)
DX: U07.1 COVID-19 (principal); J96.01 Acute respiratory failure with hypoxia; N17.0 Acute kidney failure with tubular necrosis; A41.9 Sepsis, unspecified organism; R65.20 Severe sepsis without septic shock; J69.0 Pneumonitis due to inhalation of food and vomit; N39.0 Urinary tract infection, site not specified; E87.2 Acidosis; E87.1 Hypo-osmolality and hyponatremia; R41.82 Altered mental status, unspecified; F03.90 Unspecified dementia, unspecified severity, without behavioral disturbance, psychotic disturbance, mood disturbance, and anxiety; E87.5 Hyperkalemia; I10 Essential (primary) hypertension; E78.5 Hyperlipidemia, unspecified; F32.9 Major depressive disorder, single episode, unspecified; K21.9 Gastro-esophageal reflux disease without esophagitis; Z91.048 Other nonmedicinal substance allergy status; I25.10 Atherosclerotic heart disease of native coronary artery without angina pectoris; E86.0 Dehydration; L89.209 Pressure ulcer of unspecified hip, unspecified stage; L89.309 Pressure ulcer of unspecified buttock, unspecified stage; L89.622 Pressure ulcer of left heel, stage 2; Z96.643 Presence of artificial hip joint, bilateral; Z66 Do not resuscitate; Z74.01 Bed confinement status; Z82.49 Family history of ischemic heart disease and other diseases of the circulatory system; Z86.718 Personal history of other venous thrombosis and embolism; R62.7 Adult failure to thrive; Z68.21 Body mass index [BMI] 21.0-21.9, adult
CPT/HCPCS: 36415; 36600; 51700; 70450; 71045; 80048; 80053; 80061; 80164; 81001; 82270; 82550; 82553; 82805; 82948; 83036; 83735; 83880; 84100; 84132; 84443; 84484; 85025; 85610; 85730; 86850; 86900; 87040; 87086; 93005; 96361; 96365; 96366; 97139; 99251; 99285; J0456; J0610; J1100; J1644; J1817; J2020; J2270; J2405; J2543; J7030; J7050; J7070; J7799; U0002